=== PATIENT | female | born 2000 | race Two or more races ===

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

== ENCOUNTER 2018-07-23 18:16 | Emergency (ER) | payer OTHER ==
[~2018-07-23] VITALS: Ht 154.9 cm; Wt 45.4 kg
[2018-07-23 19:24] VITALS: BP 113/65
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
[2018-07-23] MEDS ORDERED: PROCHLORPERAZINE 10 MG/2 ML VIAL. IM ONE (20:15)
[2018-07-23] MEDS ORDERED: hydrOXYzine IM 50 MG/ML VIAL IM ONE (20:15)
== END 2018-07-23 20:37 | disposition home or self-care (01) ==
LOC: ER 18:16
DX: R51 Headache (principal)
CPT/HCPCS: 96372; 99283; J0780; J3410